=== PATIENT | female | born 1975 | race Caucasian/White ===

== ENCOUNTER 2016-11-19 10:30 | Outpatient (CLI) | payer OTHER ==
[~2016-11-19 10:30] MED LIST: ATIVAN0.5 MG PO; FLONASE0.05 %; GABA; LEVOTHYROXINE112 MCG PO; PROBIOTI1; SUPER B-COMPLEX
== END 2016-11-19 23:00 ==
LOC: RT SRH 10:30
DX: R07.89 Other chest pain (principal)